=== PATIENT | female | born 1965 | race Hispanic/Latino ===

== ENCOUNTER 2025-06-07 06:04 | Emergency (ER) | payer MEDICARE ==
[~2025-06-07] VITALS: Ht 152.4 cm; Wt 87.9 kg
[2025-06-07 07:10] LABS: BASO # 0.1 10^3/uL (0.0-0.2); BASO % 0.7 % (0.0-1.0); EOS # 0.2 10^3/uL (0.0-0.5); EOS % 1.7 % (0.0-3.0); LYMPH # 1.9 10^3/uL (1.5-5.0); LYMPH % 18.3 % (24.0-44.0); MONO # 0.7 10^3/uL (0.0-0.8); MONO % 7.1 % (2.0-8.0); NEUTROPHILS # 7.2 10^3/uL (1.5-8.5); NEUTROPHILS % 71.4 % (36.0-66.0); PLATELET COUNT, AUTOMATED 401 10^3/uL (150-450)
[2025-06-07 07:30] LABS: ALT/SGPT 46 U/L (7.0-40); AST/SGOT 35 U/L (<34); CALCIUM LEVEL 9.8 MG/DL (8.3-10.6); CARBON DIOXIDE LEVEL 27 MMOL/L (20-31); CHLORIDE LEVEL 102 MMOL/L (98-107); CREATININE FOR GFR 0.76 MG/DL (0.55-1.30); GLOMERULAR FILTRATION RATE 89.1 (>45); POTASSIUM SERUM 4.6 MMOL/L (3.5-5.1); SODIUM LEVEL 141 MMOL/L (136-145)
[2025-06-07 07:40] LABS: CK-MB VALUE MASS < 1.0 NG/ML (<3.6)
[2025-06-07] MEDS: KETOROLAC 30 MG/ML 1 ML VIAL IV ONE (08:16)
[2025-06-07] MEDS: PANTOPRAZOLE 40MG VIAL IV ONE (08:16)
[2025-06-07] MEDS: ONDANSETRON 4MG/2ML VIAL IV ONE (08:16)
[2025-06-07 08:17] LABS: CPK CREATINE PHOSPHOKINASE 75 U/L (34-145)
[2025-06-07] MEDS: NS (Normal Saline) 0.9% 1,000 ML IV ONE (08:17)
[2025-06-07 10:14] VITALS: BP 104/56
[2025-06-07] MEDS: MORPHINE 4 MG/ML 1 ML VIAL IV ONE (10:14)
[2025-06-07] MEDS ORDERED: ISOVUE-370 76% 100 ML VIAL As Ordered ONE (10:15)
[2025-06-07 10:43] LABS: CK-MB VALUE MASS < 1.0 NG/ML (<3.6)
[2025-06-07 11:00] LABS: CPK CREATINE PHOSPHOKINASE 67 U/L (34-145)
[2025-06-07 13:15] VITALS: O2SAT 97
[2025-06-07] MEDS ORDERED: ONDA-282 PO (13:23)
[2025-06-07] MEDS ORDERED: HYDR-3713 PO (13:23)
[2025-06-07 13:47] VITALS: TEMP 97.6
== END 2025-06-07 13:50 | disposition home or self-care (01) ==
LOC: M ED 06:04
DX: G89.18 Other acute postprocedural pain (principal); R11.2 Nausea with vomiting, unspecified; R19.7 Diarrhea, unspecified; R16.0 Hepatomegaly, not elsewhere classified; Z79.1 Long term (current) use of non-steroidal anti-inflammatories (NSAID); Z79.899 Other long term (current) drug therapy
CPT/HCPCS: 71045; 74177; 80048; 80076; 82550; 82553; 83690; 84484; 85025; 93005; 93041; 96361; 96374; 96375; 99285; J1885; J2405; J2470; J2765; Q9967

== ENCOUNTER 2025-06-12 04:27 | Observation (INO) | payer MEDICARE ==
[~2025-06-12] VITALS: Ht 152.4 cm; Wt 88.6 kg
[~2025-06-12 04:27] MED LIST: HYDR-3713 PO; ONDA-282 PO
[2025-06-12 05:11] LABS: BASO # 0.1 10^3/uL (0.0-0.2); BASO % 0.6 % (0.0-1.0); EOS # 0.2 10^3/uL (0.0-0.5); EOS % 1.3 % (0.0-3.0); LYMPH # 2.5 10^3/uL (1.5-5.0); LYMPH % 19.7 % (24.0-44.0); MONO # 1.0 10^3/uL (0.0-0.8); MONO % 8.1 % (2.0-8.0); NEUTROPHILS # 8.8 10^3/uL (1.5-8.5); NEUTROPHILS % 69.7 % (36.0-66.0); PLATELET COUNT, AUTOMATED 268 10^3/uL (150-450)
[2025-06-12 05:12] LABS: KETONE, URINE AUTO RFX NEGATIVE (NEGATIVE); MUCUS, URINE RFX SMALL (NEGATIVE); NITRITE, URINE AUTO RFX NEGATIVE (NEGATIVE); RBC, URINE AUTO RFX 13 /HPF (0-3); SQUAM EPITHELIAL CELL UR AURFX 14 /HPF (0-6)
[2025-06-12 05:16] LABS: LEUKOCYTE ESTERASE UR AUTO RFX 3+ (NEGATIVE); WBC, URINE AUTO RFX 55 /HPF (0-3)
[2025-06-12 05:34] LABS: ALT/SGPT 34 U/L (7.0-40); AST/SGOT 28 U/L (<34); CALCIUM LEVEL 9.3 MG/DL (8.3-10.6); CARBON DIOXIDE LEVEL 29 MMOL/L (20-31); CHLORIDE LEVEL 104 MMOL/L (98-107); CREATININE FOR GFR 0.66 MG/DL (0.55-1.30); GLOMERULAR FILTRATION RATE > 90.0 (>45); POTASSIUM SERUM 4.0 MMOL/L (3.5-5.1); SODIUM LEVEL 142 MMOL/L (136-145)
[2025-06-12] MEDS ORDERED: ISOVUE-370 76% 100 ML VIAL As Ordered ONE (06:54)
[2025-06-12] MEDS: ONDANSETRON 4MG/2ML VIAL IV ONE (07:36)
[2025-06-12] MEDS: PANTOPRAZOLE 40MG VIAL IV ONE (07:37)
[2025-06-12] MEDS: SUCRALFATE SUSP 1GM/10ML UD PO ONE (07:59)
[2025-06-12] MEDS: MAALOX 30 ML SUSP *UDC PO ONE (08:00)
[2025-06-12] MEDS: LIDOCAINE VISCOUS 2% SOLN 15 ML UDC PO ONE (08:00)
[2025-06-12] MEDS: KETOROLAC 30 MG/ML 1 ML VIAL IV ONE (08:31)
[2025-06-12] MEDS: NS (Normal Saline) 0.9% 1,000 ML IV ONE (09:19)
[2025-06-12] MEDS: MORPHINE 4 MG/ML 1 ML VIAL IV ONE ×2 (10:33→12:45)
[2025-06-12] MEDS ORDERED: DEXTROSE 50% 50 ML SYRINGE IV PRN (14:55)
[2025-06-12] MEDS ORDERED: GLUCAGON INJ 1 MG VIAL SC PRN (14:55)
[2025-06-12] MEDS ORDERED: GLUCOSE 4 GM CHEW PO PRN (14:55)
[2025-06-12] MEDS ORDERED: PERCOCET 5MG/325MG TAB PO PRN (14:55)
[2025-06-12] MEDS: cefTRIAXone SOD 1 GM in DEXTROSE 5% (D5W) ADV/MINI-BAG 50 ML IV SCH (16:03)
[2025-06-12] MEDS: LR 1,000 ML IV SCH (16:08)
[2025-06-12] MEDS: MORPHINE 2 MG/ML 1 ML VIAL IV PRN (16:15)
[2025-06-12 16:24] VITALS: BP 119/59; TEMP 97.4; O2SAT 98
[2025-06-12] MEDS ORDERED: CLON0.5T2 PO (16:43)
[2025-06-12] MEDS ORDERED: HYDR-3713 PO (16:43)
[2025-06-12] MEDS ORDERED: QUET400T2 PO (16:43)
[2025-06-12] MEDS ORDERED: LOPI600T PO (16:43)
[2025-06-12] MEDS ORDERED: ONDA-282 PO (16:43)
[2025-06-12] MEDS ORDERED: PANT40TA29 PO (16:43)
[2025-06-12] MEDS ORDERED: ROSU20TA86 PO (16:43)
[2025-06-12] MEDS ORDERED: METF-877 PO (16:43)
[2025-06-12] MEDS ORDERED: LEVO150T7 PO (16:43)
[2025-06-12] MEDS ORDERED: HOME MED LIST COMPLETE! XX SCH (16:45)
[2025-06-12] MEDS: ONDANSETRON 4MG/2ML VIAL IV PRN (16:54)
[2025-06-12] MEDS: INSULIN LISPRO (NovoLOG) PER UNIT SC SCH ×2 (17:30→17:44)
[2025-06-12] MEDS: SUCRALFATE SUSP 1GM/10ML UD PO SCH (18:01)
[2025-06-12] MEDS: HALOPERIDOL LACTATE 5 MG/ML VIAL IV ONE (18:01)
[2025-06-12 20:00] VITALS: BP 101/55; TEMP 97.5; O2SAT 96
[2025-06-12] MEDS: PANTOPRAZOLE 40MG VIAL IV SCH (20:31)
[2025-06-12] MEDS: GEMFIBROZIL 600 MG TABLET PO SCH (20:31)
[2025-06-12] MEDS: clonazePAM 0.5 MG TAB PO SCH (20:32)
[2025-06-13 04:00] VITALS: BP 125/63; TEMP 98.3; O2SAT 96
[2025-06-13] MEDS: LEVOTHYROXINE 150 MCG TABLET (0.15 MG) PO SCH (06:10)
[2025-06-13 08:33] LABS: PLATELET COUNT, AUTOMATED 175 10^3/uL (150-450)
[2025-06-13] MEDS: ROSUVASTATIN 10 MG TAB PO SCH (08:47)
[2025-06-13 09:25] LABS: CALCIUM LEVEL 7.9 MG/DL (8.3-10.6); CARBON DIOXIDE LEVEL 28 MMOL/L (20-31); CHLORIDE LEVEL 107 MMOL/L (98-107); CREATININE FOR GFR 0.70 MG/DL (0.55-1.30); GLOMERULAR FILTRATION RATE > 90.0 (>45); POTASSIUM SERUM 3.8 MMOL/L (3.5-5.1); SODIUM LEVEL 145 MMOL/L (136-145)
[2025-06-13 11:38] VITALS: BP 87/56; TEMP 97.4; O2SAT 94
[2025-06-13 11:45] VITALS: BP 86/52
[2025-06-13 13:16] VITALS: BP 97/65
[2025-06-13 16:07] VITALS: BP 92/54
[2025-06-13 20:00] VITALS: BP 91/53; TEMP 98.1; O2SAT 100
[2025-06-13] MEDS: ENOXAPARIN 40 MG/0.4 ML SYRINGE (J1650 PER 10MG) SC SCH (20:19)
[2025-06-14 04:10] VITALS: BP 98/53; TEMP 98.6; O2SAT 95
[2025-06-14 07:31] LABS: BASO # 0.1 10^3/uL (0.0-0.2); BASO % 0.6 % (0.0-1.0); EOS # 0.3 10^3/uL (0.0-0.5); EOS % 3.5 % (0.0-3.0); LYMPH # 2.8 10^3/uL (1.5-5.0); LYMPH % 33.2 % (24.0-44.0); MONO # 0.8 10^3/uL (0.0-0.8); MONO % 9.7 % (2.0-8.0); NEUTROPHILS # 4.3 10^3/uL (1.5-8.5); NEUTROPHILS % 51.6 % (36.0-66.0); PLATELET COUNT, AUTOMATED 155 10^3/uL (150-450)
[2025-06-14 07:33] LABS: CALCIUM LEVEL 8.6 MG/DL (8.3-10.6); CARBON DIOXIDE LEVEL 28.0 MMOL/L (20-31); CHLORIDE LEVEL 107.0 MMOL/L (98-107); CREATININE FOR GFR 0.79 MG/DL (0.55-1.30); GLOMERULAR FILTRATION RATE 85.1 (>45); POTASSIUM SERUM 4.0 MMOL/L (3.5-5.1); SODIUM LEVEL 143.0 MMOL/L (136-145)
[2025-06-14] MEDS: LR 1,000 ML IV ONE (07:53)
[2025-06-14 12:15] VITALS: BP 128/78; TEMP 99.1; O2SAT 96
[2025-06-14] MEDS ORDERED: CARA1TAB6 PO (14:59)
[2025-06-14] MEDS ORDERED: REGL5TAB2 PO (14:59)
[2025-06-14] MEDS ORDERED: JANU25TA PO (14:59)
[2025-06-14] MEDS ORDERED: PANT40TA29 PO (14:59)
== END 2025-06-14 15:57 | disposition home or self-care (01) ==
LOC: M ED 04:27 → M ED INP 04:28 → M MS4PR 15:35
PROVIDERS: ADMIT Internal Medicine; ATTEND Internal Medicine
DX: R11.2 Nausea with vomiting, unspecified (principal); R10.13 Epigastric pain; Z87.11 Personal history of peptic ulcer disease; Z87.19 Personal history of other diseases of the digestive system; E87.20 Acidosis, unspecified; R82.71 Bacteriuria; D72.828 Other elevated white blood cell count; R63.8 Other symptoms and signs concerning food and fluid intake; E78.5 Hyperlipidemia, unspecified; E11.9 Type 2 diabetes mellitus without complications; E03.9 Hypothyroidism, unspecified; F41.9 Anxiety disorder, unspecified; F32.A Depression, unspecified; E66.812 Obesity, class 2; K76.0 Fatty (change of) liver, not elsewhere classified; Z20.828 Contact with and (suspected) exposure to other viral communicable diseases; Z79.899 Other long term (current) drug therapy; Z79.890 Hormone replacement therapy; Z79.84 Long term (current) use of oral hypoglycemic drugs; Z85.3 Personal history of malignant neoplasm of breast; Z90.49 Acquired absence of other specified parts of digestive tract
CPT/HCPCS: 36415; 74177; 80048; 80076; 81001; 83605; 83690; 85025; 85027; 87086; 93005; 96361; 96372; 96374; 96375; 96376; 99285; G0378; J0696; J1630; J1650; J1815; J1885; J2405; J2470; J2765; Q9967